=== PATIENT | male | born 1950 | race Caucasian/White ===

== ENCOUNTER → 2020-06-22 | Outpatient (CLI) | payer OTHER | LOC: SJCVC 12:34 | PROVIDERS: ATTEND Internal Medicine Cardiovascular Disease | DX: R00.1 Bradycardia, unspecified (principal); I10 Essential (primary) hypertension; R93.1 Abnormal findings on diagnostic imaging of heart and coronary circulation; E78.00 Pure hypercholesterolemia, unspecified; I71.2 Thoracic aortic aneurysm, without rupture; Z82.49 Family history of ischemic heart disease and other diseases of the circulatory system; Z79.899 Other long term (current) drug therapy ==

== ENCOUNTER → 2020-08-24 | Outpatient (CLI) | payer OTHER | LOC: SJCVCIMAG 07:27 | PROVIDERS: ATTEND Internal Medicine Cardiovascular Disease | DX: I35.8 Other nonrheumatic aortic valve disorders (principal); E78.00 Pure hypercholesterolemia, unspecified; I10 Essential (primary) hypertension; I71.2 Thoracic aortic aneurysm, without rupture; Z79.899 Other long term (current) drug therapy ==

== ENCOUNTER → 2021-05-05 | Outpatient (CLI) | payer OTHER ==
[2021-05-05 17:00] LABS: ABSOLUTE NEUTROPHILS 2.6 thou/uL (1.4-8.2); BASOPHILS 0.5 % (0.0-2.0); EOSINOPHILS 4.6 % (0.0-3.0); HEMOGLOBIN 15.1 gm/dL (14.0-18.0); LYMPHOCYTES 42.5 % (24.0-44.0); MCH 32.4 pg (26.0-34.0); MCHC 33.6 g/dL (28.0-37.0); MCV 96.5 fL (80.0-100.0); MONOCYTES 9.4 % (1.0-8.0); PLATELET COUNT 202 thou/uL (150-400); RBC 4.66 mil/uL (4.50-6.00); RDW 15.2 % (10.5-14.5); WBC 6.1 thou/uL (4.0-11.0)
[2021-05-05 17:08] LABS: CALCIUM 8.9 mg/dL (8.5-10.1); CREATININE 1.1 mg/dL (0.7-1.3); POTASSIUM 4.2 mmol/L (3.5-5.1)
[2021-05-06 18:06] LABS: HBsAG-EMPLOYEE EXPOSURE Negative (Negative)
[2021-05-08 09:07] LABS: HCV-RNA by PCR - EXPOSURE HCV Not Detected IU/mL (())
== END ==
LOC: LAB 14:13 → SJCVC 14:13
PROVIDERS: ATTEND Internal Medicine Cardiovascular Disease
DX: R93.1 Abnormal findings on diagnostic imaging of heart and coronary circulation (principal); I71.2 Thoracic aortic aneurysm, without rupture; I25.10 Atherosclerotic heart disease of native coronary artery without angina pectoris; E78.00 Pure hypercholesterolemia, unspecified; Z79.82 Long term (current) use of aspirin; Z79.899 Other long term (current) drug therapy; Z82.49 Family history of ischemic heart disease and other diseases of the circulatory system

== ENCOUNTER → 2021-06-28 | Outpatient (CLI) | payer OTHER ==
[~2021-06-28] VITALS: Ht 175.3 cm; Wt 113.4 kg
[~2021-06-28] MED LIST: BENICAR40 MG PO; CRESTOR40 MG PO; NORVASC5 MG PO
--- NOTE | 2021-06-30 16:06 | PATH ---
[facility] [address] [place] [address] PATHOLOGY RPT PROCEDURE Name: ZENON RICARDO MILTON Room #: REG [facility] M.[place].#: [id number] Admission: 06/28/21 Date of : 54 Discharge: Report #: [id number] Path Case #: [id number] [facility] Accession Number: [id number] . 01 Material submitted: . PART A: cecum - CECAL POLYP PART B: colon - ASCENDING POLYPS X2. Modifiers: ascending PART C: colon - TRANSVERSE POLYP. Modifiers: transverse PART D: sigmoid colon - SIGMOID POLYP . 01 Clinical history: . CIRRHOSIS OF LIVER, SCREENING COLON REFLUX ESOPHAGITIS, COLON POLYPS . 02 Diagnosis: A. Polyp, cecal polyp, endoscopic biopsy: - Tubular adenoma. - Negative for high-grade dysplasia. . B. Polyps x2, ascending colon polyps, endoscopic biopsy: - Few fragments showing tubular adenoma without high-grade dysplasia. - One fragment showing hyperplastic polyp without dysplasia. . C. Polyp, transverse polyp, endoscopic biopsy: - Tubular adenoma. - Negative for high-grade dysplasia. . D. Polyp, sigmoid polyp, endoscopic biopsy: - Tubular adenoma. - Negative for high-grade dysplasia. (IUV:rian; 06/30/2021) QMS 06/30/2021 1403 Local . 02 Electronically signed: . Jerica Butts MD, Pathologist NPI- [id number] . 01 Gross description: . A. The specimen is submitted in formalin, labeled "Zenon Ricardo, cecal polyp". Received are 2 Pepito segments of pale hoff tissue ranging in size from 0.3 to 1.3 cm in maximum dimensions. The specimen is submitted in cassette A1. . B. The specimen is submitted in formalin, labeled "Zenon Ricardo, ascending colon polyp". Received are multiple segments of pale hoff tissue ranging in size from 0.2 to 0.6 cm in maximum dimensions. The specimen is submitted in cassette B1. [address] [address] PATHOLOGY RPT PROCEDURE Name: ZENON RICARDO MILTON Room #: REG [facility].#: [id number] Admission: 06/28/21 Date of : 54 Discharge: Report #: [id number] Path Case #: [id number] . C. The specimen is received in formalin, labeled "Zenon Ricardo, transverse colon polyp". Received is a single segment of pale hoff tissue measuring 0.6 cm in maximum dimensions. The specimen is submitted entirely in cassette C1. . D. The specimen is received in formalin, labeled "Saritha, Zenon, sigmoid polyp". Received is a single segment of pale hoff tissue measuring 0.9 cm in maximum dimensions. The surgical margin is inked.' The specimen is bisected and submitted entirely in cassette D1. ([facility]; 06/29/2021) NRI/NRI 06/29/2021 1016 Local . 02 Pathologist provided ICD-10: D12.0, D12.2, D12.3, D12.5 . 02 CPT . 521534, 836617, 506072, 326472 Specimen Comment: A courtesy copy of this report has been sent to [phone] Specimen Comment: Report sent to Performed at: [address], [place] [id number] MD Antonio Lopez MD Phone: [phone] Performed at: [address] [id number] MD Jerica Butts MD Phone: [phone]
== END | disposition home or self-care (01) ==
LOC: GI 07:15
PROVIDERS: ATTEND Internal Medicine Gastroenterology
DX: Z12.11 Encounter for screening for malignant neoplasm of colon (principal); D12.0 Benign neoplasm of cecum; D12.2 Benign neoplasm of ascending colon; D12.5 Benign neoplasm of sigmoid colon; D12.3 Benign neoplasm of transverse colon; R12 Heartburn; K21.00 Gastro-esophageal reflux disease with esophagitis, without bleeding; I10 Essential (primary) hypertension; E78.00 Pure hypercholesterolemia, unspecified; K74.60 Unspecified cirrhosis of liver; Z98.890 Other specified postprocedural states; Z79.899 Other long term (current) drug therapy; Z20.822 Contact with and (suspected) exposure to COVID-19
CPT/HCPCS: 62110; 62900

== ENCOUNTER → 2021-08-04 | Outpatient (CLI) | payer OTHER | LOC: SJCVCIMAG 07:28 | PROVIDERS: ATTEND Internal Medicine Cardiovascular Disease | DX: I49.1 Atrial premature depolarization (principal); I25.10 Atherosclerotic heart disease of native coronary artery without angina pectoris; I10 Essential (primary) hypertension; R06.00 Dyspnea, unspecified; R53.83 Other fatigue ==

== ENCOUNTER → 2021-12-15 | Outpatient (CLI) | payer OTHER | LOC: CAT 14:42 | PROVIDERS: ATTEND Internal Medicine Cardiovascular Disease | DX: Z13.6 Encounter for screening for cardiovascular disorders (principal); I25.10 Atherosclerotic heart disease of native coronary artery without angina pectoris; E78.00 Pure hypercholesterolemia, unspecified ==